=== PATIENT | female | born 1960 | race Caucasian/White ===

== ENCOUNTER → 2018-08-05 10:22 | Outpatient (CLI) | payer OTHER, SELFPAY ==
[2018-08-05 11:23] LABS: BUN Creatinine Ratio 23.3 (6-22); Blood Urea Nitrogen 14 mg/dL (7-17); Calcium 9.5 mg/dL (8.4-10.2); Carbon Dioxide 20 mmol/L (22-32); Chloride 107 mmol/L (98-107); Cholesterol 203 mg/dL (140-199); Estimated Glomerular Filt Rate > 60.0 mL/min (>60); Glucose 115 mg/dL (70-100); HDL Cholesterol 65 mg/dL (40-60); HEMOLYSIS 17 (0-50); LDL Cholesterol Calculated 108 mg/dL (<100); Potassium 4.1 mmol/L (3.4-5.1); Sodium 143 mmol/L (137-145); Triglycerides 149 mg/dL (35-150)
[2018-08-05 11:52] LABS: Thyroid Stimulating Hormone 0.25 uIU/mL (0.47-4.68)
== END ==
PROVIDERS: Visit Provider Internal Medicine
DX: I10 Essential (primary) hypertension (principal); E03.9 Hypothyroidism, unspecified; E78.2 Mixed hyperlipidemia
CPT/HCPCS: 36415; 80048; 80061; 84443

== ENCOUNTER → 2018-11-13 12:16 | Outpatient (CLI) | payer OTHER, SELFPAY ==
--- NOTE | 2018-11-13 | DI.MG.S_ITS ---
BILATERAL DIGITAL SCREENING MAMMOGRAM 3D/2D WITH CAD: 11/13/2018 CLINICAL: Routine screening. Comparison is made to exams dated: 01/24/2013 mammogram, 01/05/2012 mammogram, and 10/12/2010 mammogram - [facility]. The tissue of both breasts is heterogeneously dense. This may lower the sensitivity of mammography. Current study was also evaluated with a Computer Aided Detection (CAD) system. There is an oval equal density asymmetry with a circumscribed margin in the right breast central to the nipple anterior depth. There is an oval equal density focal asymmetry with an obscured and circumscribed margin in the left breast anterior depth superior region seen on the mediolateral oblique view only. No other significant masses or calcifications are seen in either breast. IMPRESSION: INCOMPLETE: NEEDS ADDITIONAL IMAGING EVALUATION The oval equal density asymmetry in the right breast central to the nipple anterior depth is indeterminate. Mediolateral and spot compression views as well as additional views with possible ultrasound are recommended. The oval equal density focal asymmetry in the left breast anterior depth superior region seen on the mediolateral oblique view only is indeterminate. Mediolateral and spot compression views as well as additional views with possible ultrasound are recommended. This exam was interpreted at Station ID: [id number]. NOTE: For mammograms, a report in lay terms will be sent to the patient. Approximately 15% of breast malignancies will not be visualized mammographically. In the management of a palpable breast mass, a negative mammogram must not discourage biopsy of a clinically suspicious lesion. Electronically Signed By: Tacho miller/edward:11/13/2018 15:47:36 letter sent: Additional Imaging Needed ACR BI-RADS Category 0: Incomplete 3340F
== END ==
PROVIDERS: Visit Provider Internal Medicine
DX: Z12.31 Encounter for screening mammogram for malignant neoplasm of breast (principal)
CPT/HCPCS: 77063; 77067

== ENCOUNTER → 2018-12-05 12:04 | Outpatient (CLI) | payer OTHER, SELFPAY ==
--- NOTE | 2018-12-05 | DI.US.S_ITS ---
LIMITED ULTRASOUND OF RIGHT BREAST: 12/05/2018 CLINICAL: Patient returns today to evaluate a density in the right breast. Comparison is made to exams dated: 12/05/2018 mammogram, 11/13/2018 mammogram, 01/24/2013 mammogram, 01/05/2012 mammogram, and 10/12/2010 mammogram - [facility]. Ultrasound of the right breast 7-9 o'clock region was performed. There is 1.4 cm x 0.5 cm x 0.7 cm dilated duct in the right breast at 9 o'clock in the retroareolar region. This dilated duct displays homogeneous internal echoes. Color flow imaging demonstrates that there is no vascularity present. There also is a benign 5 mm round cyst in the right breast at 9 o'clock anterior depth. Color flow imaging demonstrates that there is no vascularity present. IMPRESSION: PROBABLY BENIGN The 1.4 cm x 0.5 cm x 0.7 cm dilated, debris-filled duct in the right breast at 9 o'clock in the retroareolar region likely corresponds to the mammographic finding and is probably benign. A discrete intraductal lesion is not visible. A follow-up ultrasound in 6 months is recommended to assess for resolution or stability. The 5 mm round cyst in the right breast at 9 o'clock anterior depth is consistent with a simple cyst and is benign. Findings and recommendations were conveyed to the patient. This exam was interpreted at Station ID: [id number]. Electronically Signed By: Evelina chapin/:12/05/2018 16:22:18 letter sent: Followup Recommended Ultrasound BI-RADS: 3 Probably benign
--- NOTE | 2018-12-05 | DI.MG.S_ITS ---
BILATERAL DIGITAL DIAGNOSTIC MAMMOGRAM 3D/2D WITH ADDITIONAL VIEWS: 12/05/2018 CLINICAL: Additional evaluation requested from prior study. Comparison is made to exams dated: 11/13/2018 mammogram, 01/24/2013 mammogram, and 01/05/2012 mammogram - [facility]. The tissue of both breasts is heterogeneously dense. This may lower the sensitivity of mammography. There is a 3 mm round mass with a circumscribed margin in the right breast at 8 o'clock in the retroareolar region. With additional views, no persistent abnormality was seen in the left breast as indicated at screening. No other significant masses, calcifications, or other findings are seen in either breast. IMPRESSION: INCOMPLETE: NEEDS ADDITIONAL IMAGING EVALUATION The 3 mm round mass in the right breast is indeterminate. An ultrasound is recommended which was performed following this exam. Left breast diagnostic mammogram is negative. This exam was interpreted at Station ID: [id number]. NOTE: For mammograms, a report in lay terms will be sent to the patient. Approximately 15% of breast malignancies will not be visualized mammographically. In the management of a palpable breast mass, a negative mammogram must not discourage biopsy of a clinically suspicious lesion. Electronically Signed By: Evelina chapin/:12/05/2018 16:16:06 ACR BI-RADS Category 0: Incomplete 3340F
== END ==
PROVIDERS: PCP Internal Medicine; Visit Provider Internal Medicine
DX: R92.8 Other abnormal and inconclusive findings on diagnostic imaging of breast (principal); N63.13 Unspecified lump in the right breast, lower outer quadrant; N60.01 Solitary cyst of right breast
CPT/HCPCS: 76642; 77066; G0279

== ENCOUNTER → 2019-01-07 14:55 | Outpatient (CLI) | payer OTHER, SELFPAY ==
[2019-01-07 18:26] LABS: TSH w/ Reflex to FT4 0.18 uIU/mL (0.47-4.68)
[2019-01-07 19:15] LABS: Free T4, Direct Thyroxine 1.46 ng/dL (0.78-2.19)
== END ==
PROVIDERS: PCP Internal Medicine; Visit Provider Internal Medicine
DX: E03.9 Hypothyroidism, unspecified (principal)
CPT/HCPCS: 36415; 84439; 84443

== ENCOUNTER → 2019-03-12 13:26 | Outpatient (CLI) | payer OTHER, SELFPAY ==
[2019-03-12 16:34] LABS: TSH w/ Reflex to FT4 1.05 uIU/mL (0.47-4.68)
== END ==
PROVIDERS: PCP Internal Medicine; Visit Provider Internal Medicine
DX: E03.9 Hypothyroidism, unspecified (principal)
CPT/HCPCS: 36415; 84443

== ENCOUNTER 2019-04-16 09:45 | Day surgery (SDC) | payer OTHER, SELFPAY ==
--- NOTE | 2019-04-16 | PATH_ITS ---
[facility] Accession Number: [id number] . 01 Material submitted: . PART A: colon - TRANSVERSE COLON POLYP X2 PART B: colon - SIGMOID POLYP . 02 Diagnosis: A. Transverse Colon, Polyps x2, Biopsies: Tubular adenoma. Sessile serrated adenoma. . B. Sigmoid Colon, Polyp, Biopsy: Tubular adenoma. MRV/04/17/2019 . 02 Electronically signed: . Amanda Dumont MD, Pathologist NPI- [id number] . 01 Gross description: . Part A: TRANSVERSE COLON POLYP X2: Received in formalin are 3 fragment(s) of jeronimo, soft tissue measuring 0.1 x 0.1 x 0.1 cm to 0.5 x 0.5 x 0.3 cm which is entirely submitted and submitted entirely in 1 cassette(s) Part B: SIGMOID POLYP: Received in formalin is 1 fragment(s) of jeronimo, soft tissue measuring 0.3 x 0.2 x 0.2 cm which is entirely submitted and submitted entirely in 1 cassette(s) /DMC /DMC . 02 Pathologist provided ICD-10: D12.3, D12.5 . 02 CPT . 197179, 630517 Performed at: 01 [facility] [address], [place], [place] [id number] MD Tacho Bartlett MD Phone: [phone] Performed at: 02 [facility] [address] [place], [place] [id number] MD Amanda Dumont MD Phone: [phone]
--- NOTE | 2019-04-16 07:51 | PM.HP.1 ---
History of Present Illness Date Patient Seen: 04/16/19 Chief complaint: [id number] Narrative: 59-year-old female seen in our office on 02/18/2019 for preop evaluation prior to undergoing colon cancer screening. No prior history of colonoscopy. No active GI symptoms at present Patient History Medical History (Updated 04/16/19 @ 10:18 by Diana Cook RN) Bronchospastic airway disease (Acute) Chronic low back pain (Acute) Current smoker on some days (Acute) Hyperlipidemia (Acute) Hypertension (Acute) Hypothyroidism (Acute) Sciatica (Acute) Social History household members: spouse Meds Home Medications Medication Instructions Recorded Confirmed Type albuterol sulfate 90 mcg INHALATION Q4H PRN 04/16/19 04/16/19 History amlodipine 10 mg PO DAILY 04/16/19 04/16/19 History gabapentin 600 mg PO TID 04/16/19 04/16/19 History hydrocodone-acetaminophen 1 tab PO Q6H PRN 04/16/19 04/16/19 History ibuprofen 800 mg PO Q6H PRN 04/16/19 04/16/19 History ibuprofen-diphenhydramine cit 2 cap PO BEDTIME PRN 04/16/19 04/16/19 History [Advil PM] levothyroxine 125 mcg PO DAILY 04/16/19 04/16/19 History medroxyprogesterone 04/16/19 History medroxyprogesterone 2.5 mg PO DAILY 04/16/19 04/16/19 History metoprolol tartrate 50 mg PO BID 04/16/19 04/16/19 History triamterene-hydrochlorothiazid 1 cap PO DAILY 04/16/19 04/16/19 History [Dyazide] Allergies Allergy/AdvReac Type Severity Reaction Status Date / Time egg [EGG] Allergy Mild GAS/STOMACH Verified 04/16/19 10:06 ACHE Sulfa (Sulfonamide Allergy Mild ITCHING, Verified 04/16/19 10:06 Antibiotics) HIVES [SULFA (SULFONAMIDE ANTIBIOTICS)] Exam Narrative Exam Narrative: General: Patient is overweight, not in apparent distress Cardiovascular: Regular rate and rhythm, no murmurs, rubs, or gallops; no evidence of edema; no palpable abdominal aortic aneurysm Gastrointestinal: Normoactive bowel sounds, soft, nontender, nondistended, no rebound tenderness, no hepatosplenomegaly, no evidence of hernia Assessment & Plan Assessment & Plan narrative: 59-year-old female here for colon cancer screening. No alarm symptoms at present Regarding the procedure(s), the risks and potential complications, benefits, and alternatives (including not doing the procedure) were discussed with the patient. The risks include but are not limited to bleeding, splenic injury, infection, perforation which may require surgical intervention, missed lesions, and adverse reactions to sedative medicines. After a question and answer period, the patient agreed to proceed with the procedure(s) and gives informed consent.
[2019-04-16] MEDS: SODIUM CHLORIDE 0.9% 1,000 ML 70 ML IV (10:10)
[2019-04-16 10:13] VITALS: BP 154/79; PULSE 83; RESP 15; TEMP 36.4; O2SAT 96; BMI 24.0
[2019-04-16] MEDS: fentaNYL 250 MCG/5 ML INJ IV (11:25)
[2019-04-16] MEDS: MIDAZOLAM 5 MG/5 ML VIAL IV (11:25)
--- NOTE | 2019-04-16 11:37 | P.OP.ENDO_ITS ---
Operative Date/Time/Diagnoses Date of procedure: 04/16/19 Procedure Notes Procedure in detail: Surgeon: Damian Sanchez MD Procedure: Colonoscopy with polypectomy Preoperative diagnosis: Colon cancer screening Postoperative diagnosis: Colon polyps x3 status post polypectomy; hypertrophied anal papillae Medications: Conscious sedation using 8 mg IV of Midazolam and 150 mcg IV of Fentanyl Preanesthesia Assessment An H and P was performed/updated and the Px?s ASA class is 2. The procedure was discussed in detail with the patient. The potential risks and complications including infection, bleeding, missed lesions, perforation, need for surgery in case of perforation, prolonged hospital stay, and were explained. A brief question and answer period was allotted and once all questions were answered, informed consent was obtained. The patient was brought back to the procedure room and placed on standard monitoring. The patient?s vital signs were monitored continuously throughout the entire procedure. Prior to starting, a timeout was performed to confirm the patient?s identity, allergies, medications, and procedure. Procedure in detail The patient was placed in left lateral decubitus position and once adequate sedation was obtained a FLORECITA was performed. The digital rectal examination did not reveal any palpable lesions. The tip of the colonoscope was placed in the anal canal and advanced without difficulty all the way to the cecum which was identified by the appendiceal orifice and the ileocecal valve. Careful examination of all millard of the colon was performed with irrigation of any residual stool. In the transverse colon, there was note of a 3 mm sessile polyp which was removed by means of cold Jumbo forceps. Resection and retrieval was complete with minimal bleeding In the transverse colon, there was note of a 6 mm sessile polyp which was re moved by means of cold snare. Resection retrieval was complete with minimal bleeding. In the sigmoid colon, there was note of a 2 3 mm sessile polyp which was removed by means of a cold Jumbo forceps. Resection and retrieval was complete with minimal bleeding. Retroflexion was performed in the rectum which revealed hypertrophied anal papillae. The patient tolerated the procedure well and will be brought back to the recovery area to be discharged once criteria are met. The prep was judged to be good and adequate to identify polyps less than 5 mm. The withdrawal time was 9 minutes. The total physician intraservice time was 18 minutes. Complications There were no complications and estimated blood loss was minimal. Recommendations: Resume previous diet Continue outPx medications Follow up pathology results Repeat colonoscopy in 3 or 5 years depending on pathology results An emergency contact number was given to the patient for any complications related to the procedure
[2019-04-16 11:40] VITALS: BP 129/74; PULSE 83; RESP 13; TEMP 36.8; O2SAT 97
[2019-04-16 11:45] VITALS: BP 141/81; PULSE 83; RESP 12; O2SAT 98
[2019-04-16 11:50] VITALS: BP 146/81; PULSE 78; RESP 12; O2SAT 97
[2019-04-16 11:58] VITALS: BP 144/81; PULSE 77; RESP 16; TEMP 36.4; O2SAT 99
[2019-04-16 12:06] VITALS: BP 125/77; PULSE 80; RESP 16; TEMP 36.6; O2SAT 97
== END 2019-04-16 12:21 | disposition home or self-care (01) ==
LOC: ENDO 09:46
PROVIDERS: PCP Internal Medicine; Visit Provider Internal Medicine Gastroenterology
PROC: 0DJD8ZZ Inspection of Lower Intestinal Tract, Via Natural or Artificial Opening Endoscopic (ICD-10-PCS; CPT 45378; principal; 2019-04-16 11:00)
DX: Z12.11 Encounter for screening for malignant neoplasm of colon (principal); D12.3 Benign neoplasm of transverse colon; D12.5 Benign neoplasm of sigmoid colon; K62.89 Other specified diseases of anus and rectum; E78.5 Hyperlipidemia, unspecified; I10 Essential (primary) hypertension; E03.9 Hypothyroidism, unspecified; F17.200 Nicotine dependence, unspecified, uncomplicated
CPT/HCPCS: 45385; 45380; J2250; J3010

== ENCOUNTER → 2019-10-16 14:45 | Outpatient (ROUT) | payer OTHER, SELFPAY ==
[2019-10-16 15:12] LABS: Aspartate Aminotransferase 23 IU/L (14-36); BUN Creatinine Ratio 18.3 (6-22); Blood Urea Nitrogen 11 mg/dL (7-17); Calcium 9.8 mg/dL (8.4-10.2); Carbon Dioxide 26 mmol/L (22-32); Chloride 103 mmol/L (98-107); Cholesterol 197 mg/dL (140-199); Estimated Glomerular Filt Rate > 60.0 mL/min (>60); Glucose 114 mg/dL (80-110); HDL Cholesterol 68 mg/dL (40-60); HEMOLYSIS < 15 (0-50); LDL Cholesterol Calculated 94 mg/dL (<100); Potassium 3.7 mmol/L (3.4-5.1); Sodium 139 mmol/L (137-145); Triglycerides 176 mg/dL (35-150)
[2019-10-16 15:41] LABS: TSH w/ Reflex to FT4 3.87 uIU/mL (0.47-4.68)
== END ==
PROVIDERS: PCP Internal Medicine; Visit Provider Internal Medicine
DX: I10 Essential (primary) hypertension (principal); E78.2 Mixed hyperlipidemia; E03.9 Hypothyroidism, unspecified
CPT/HCPCS: 80048; 80061; 84443; 84450

== ENCOUNTER → 2020-10-27 14:35 | Outpatient (ROUT) | payer OTHER, SELFPAY ==
[2020-10-27 14:54] LABS: Add Manual Diff / Slide Review NO; Basophils Absolute Auto 100 /uL (0-100); Basophils Percent Auto 1.4 % (0-2); Eosinophils Absolute Auto 100 /uL (0-450); Eosinophils Percent Auto 1.4 % (2-4); Hematocrit 42.8 % (36-46); Hemoglobin 14.5 g/dL (12.0-16.0); Lymphocytes Absolute Auto 3000 /uL (1100-4500); Lymphocytes Percent Auto 33.9 % (25-40); Mean Corpuscular HGB Conc 33.9 % (30-36); Mean Corpuscular Hemoglobin 35.1 PG (26-34); Mean Corpuscular Volume 103.4 fL (80-100); Monocytes Absolute Auto 1100 /uL (0-900); Monocytes Percent Auto 12.2 % (3-14); Neutrophils Absolute Auto 4400 /uL (1500-7000); Neutrophils Percent Auto 51.1 % (50-75); Platelet Count 279 X10^3/uL (150-400); Red Blood Cell Count 4.14 X10^6/uL (4.0-5.2); Red Cell Distribution Width 13.7 % (11.6-14.8); White Blood Cell Count 8.7 X10^3/uL (4.5-11.0)
[2020-10-27 14:59] LABS: Aspartate Aminotransferase 31 IU/L (14-36); BUN Creatinine Ratio 20.3 (6-22); Blood Urea Nitrogen 14 mg/dL (7-17); Carbon Dioxide 29 mmol/L (22-32); Chloride 101 mmol/L (98-107); Cholesterol 237 mg/dL (140-199); Estimated Glomerular Filt Rate > 60.0 mL/min (>60); Glucose 115 mg/dL (80-110); HDL Cholesterol 98 mg/dL (40-60); HEMOLYSIS < 15 (0-50); LDL Cholesterol Calculated 92 mg/dL (<100); Potassium 4.2 mmol/L (3.4-5.1); Sodium 137 mmol/L (137-145); Triglycerides 237 mg/dL (35-150)
[2020-10-27 15:26] LABS: TSH w/ Reflex to FT4 0.65 uIU/mL (0.47-4.68)
== END ==
PROVIDERS: PCP Internal Medicine; Visit Provider Internal Medicine
DX: I10 Essential (primary) hypertension (principal)
CPT/HCPCS: 80048; 80061; 84443; 84450; 85025

== ENCOUNTER → 2020-11-02 12:38 | Outpatient (CLI) | payer OTHER, SELFPAY ==
--- NOTE | 2020-11-02 | DI.US.S_ITS ---
PROCEDURE: US PELVIC COMPLETE INDICATIONS: Postmenopausal bleeding TECHNIQUE: Real-time scanning was performed of the pelvic organs, with image documentation. Additional endovaginal scanning was necessary due to incomplete visualization of the adnexal and endometrial structures by transabdominal scanning. COMPARISON: None. FINDINGS: Uterus: Uterus is enlarged in size at 10.0 x 6.4 x 9.0 cm. Heterogeneous uterine echotexture with too numerous to count multiple intrauterine fibroids. The largest is seen in the midline, posterior fundus, subserosal in location and measuring 5.6 x 5.5 x 5.6 cm. The endometrium measures 11 mm in combined thickness. Ovaries: The ovaries are not visualized on this examination. Other: No pathologic free abdominal or pelvic fluid. IMPRESSION: 1. Thickened endometrial stripe of 11 mm is abnormal for this postmenopausal patient with history of postmenopausal uterine bleeding. Consider further evaluation with endometrial biopsy/sampling. 2. Multi-fibroid uterus. 3. Nonvisualization of the bilateral ovaries on today's examination. Dictated by: Aleksander Ulrich M.D. on 11/02/2020 at 22:00 Approved by: Aleksander Ulrich M.D. on 11/02/2020 at 22:06
== END ==
PROVIDERS: PCP Internal Medicine; Referring Provider Internal Medicine; Visit Provider Internal Medicine
DX: N95.0 Postmenopausal bleeding (principal); R93.89 Abnormal findings on diagnostic imaging of other specified body structures; D25.2 Subserosal leiomyoma of uterus; D25.9 Leiomyoma of uterus, unspecified
CPT/HCPCS: 76830; 76856

== ENCOUNTER → 2022-03-22 07:36 | Outpatient (CLI) | payer OTHER, SELFPAY ==
[2022-03-22 08:06] LABS: Hematocrit 40.8 % (36-46); Hemoglobin 13.9 g/dL (12.0-16.0); Mean Corpuscular HGB Conc 34.1 % (30-36); Mean Corpuscular Hemoglobin 34.6 PG (26-34); Mean Corpuscular Volume 101.4 fL (80-100); Platelet Count 280 X10^3/uL (150-400); Red Blood Cell Count 4.02 X10^6/uL (4.0-5.2); Red Cell Distribution Width 13.5 % (11.6-14.8); White Blood Cell Count 7.2 X10^3/uL (4.5-11.0)
[2022-03-22 08:13] LABS: Alanine Aminotransferase 16 IU/L (<35); Albumin 4.7 g/dL (3.5-5.0); Albumin Globulin Ratio 1.5 (1.0-2.8); Alkaline Phosphatase 52 U/L (38-126); Aspartate Aminotransferase 26 IU/L (14-36); BUN Creatinine Ratio 15.3 (6-22); Bilirubin Total 0.4 mg/dL (0.2-1.3); Blood Urea Nitrogen 11 mg/dL (7-17); Calcium 9.7 mg/dL (8.4-10.2); Carbon Dioxide 29 mmol/L (22-32); Chloride 101 mmol/L (98-107); Cholesterol 231 mg/dL (140-199); Estimated Glomerular Filt Rate > 60 mL/min (>60); Globulin 3.1 g/dL (1.7-4.1); Glucose 111 mg/dL (80-110); HDL Cholesterol 81 mg/dL (40-60); HEMOLYSIS < 15 (0-50); LDL Cholesterol Calculated 122 mg/dL (<100); Potassium 3.4 mmol/L (3.4-5.1); Sodium 139 mmol/L (137-145); Total Protein 7.8 g/dL (6.3-8.2); Triglycerides 139 mg/dL (35-150)
[2022-03-22 08:54] LABS: TSH w/ Reflex to FT4 5.35 uIU/mL (0.47-4.68)
[2022-03-23 03:43] LABS: Free T4, Direct Thyroxine 1.32 ng/dL (0.78-2.19)
== END ==
PROVIDERS: PCP Internal Medicine; Referring Provider Internal Medicine; Visit Provider Internal Medicine
DX: E03.9 Hypothyroidism, unspecified (principal); G89.29 Other chronic pain; I10 Essential (primary) hypertension; M54.42 Lumbago with sciatica, left side
CPT/HCPCS: 36415; 80053; 80061; 84439; 84443; 85027

== ENCOUNTER → 2022-07-17 10:19 | Outpatient (CLI) | payer OTHER, SELFPAY ==
[2022-07-17 12:07] LABS: TSH w/ Reflex to FT4 2.94 uIU/mL (0.47-4.68)
== END ==
PROVIDERS: PCP Internal Medicine; Referring Provider Internal Medicine; Visit Provider Internal Medicine
DX: M85.852 Other specified disorders of bone density and structure, left thigh (principal); E03.9 Hypothyroidism, unspecified; Z13.820 Encounter for screening for osteoporosis; Z78.0 Asymptomatic menopausal state; Z92.23 Personal history of estrogen therapy
CPT/HCPCS: 36415; 77080; 84443

== ENCOUNTER 2022-12-19 08:39 | Day surgery (SDC) | payer OTHER, SELFPAY ==
--- NOTE | 2022-12-19 | PATH_ITS ---
[facility] Accession Number: [id number] No. of containers..01 Tissue . 01 Material submitted: . colon - DESCENDING COLON POLYP . 01 Diagnosis: Descending Colon, Polyp, Biopsy: Hyperplastic polyp. MRV 12/21/2022 1457 Local . 01 Electronically signed: . Amanda Dumont MD, Pathologist NPI- [id number] . 01 Gross description: . DESCENDING COLON POLYP: Received in formalin is 1 fragment(s) of jeronimo, soft tissue measuring 0.2 x 0.2 x 0.1 cm submitted entirely in 1 cassette(s) /CPE 12/20/2022 0654 Local . 01 Pathologist provided ICD-10: K63.5 . 01 CPT . 653062 Specimen Comment: A courtesy copy of this report has been sent to [phone] Performed at: 01 [facility] [address] [place] [address], [place], [place] [id number] MD Tacho Bartlett MD Phone: [phone]
[2022-12-19 09:04] VITALS: BMI 24.1
[2022-12-19 09:16] VITALS: BP 151/83; PULSE 96; RESP 18; TEMP 36.2; O2SAT 98
[2022-12-19] MEDS: LACTATED RINGERS 1,000 ML 200 ML IV (09:44)
--- NOTE | 2022-12-19 10:55 | P.HP_ITS ---
History of Present Illness History of Present Illness Date Patient Seen: 12/19/22 Time Patient Seen: 10:55 Chief complaint: Colonoscopy Narrative: 62-year-old woman with a personal history of colonic polyps who is here for a screening colonoscopy. Last colonoscopy 3 years ago demonstrated a sessile serrated adenoma. No personal or family history of intestinal malignancy. No abdominal symptoms including nausea vomiting unintentional weight loss blood per rectum. [facility] Medical History (Updated 09/27/22 @ 08:45 by Daniel Savage MD) Acquired hypothyroidism Bronchospastic airway disease Chronic back pain Chronic low back pain Chronic, continuous use of opioids Current smoker on some days Essential hypertension History of colonic polyps Hyperlipidemia Mild intermittent asthma Osteopenia Sciatica Family History Father Hypertension Mother Hypertension Sister Hypertension Social History household members: spouse Smoking Status: Current some day smoker alcohol intake: current Meds Home Medications and Allergies Home Medications Medication Instructions Recorded Confirmed Type albuterol sulfate 90 mcg/actuation 90 mcg inhalation Q4H PRN Wheezing 04/16/19 12/19/22 History breath activated powder inhaler estradiol 1 mg tablet See Rx Instructions .Route 06/12/22 12/19/22 Rx .COMPLEX #45 tabs gabapentin 600 mg tablet See Rx Instructions .Route 06/12/22 12/19/22 Rx .COMPLEX #270 tabs medroxyprogesterone 2.5 mg tablet See Rx Instructions .Route 06/12/22 12/19/22 Rx .COMPLEX #90 tabs levothyroxine 125 mcg tablet 125 mcg PO DAILY #90 tabs 06/15/22 09/27/22 Rx triamterene 37.5 1 tab PO DAILY 06/30/22 12/19/22 History mg-hydrochlorothiazide 25 mg tablet hydrocodone 5 mg-acetaminophen 325 1 tab PO Q6H PRN pain #120 tabs 09/27/22 09/27/22 Rx mg tablet hydrocodone 5 mg-acetaminophen 325 1 tab PO Q6H PRN pain #120 tabs 09/27/22 12/19/22 Rx mg tablet hydrocodone 5 mg-acetaminophen 325 1 tab PO Q6H PRN sciatica #120 tabs 09/27/22 12/19/22 Rx mg tablet metoprolol tartrate 50 mg tablet 50 mg PO BID 09/27/22 12/19/22 History amlodipine 10 mg tablet PO DAILY 12/19/22 History fluticasone propionate 50 1 spray intranasal DAILY 12/19/22 12/19/22 History mcg/actuation nasal spray,suspension (Flonase Allergy Relief) Allergies Allergy/AdvReac Type Severity Reaction Status Date / Time egg [EGG] Allergy Mild GAS/STOMACH Verified 12/19/22 09:03 ACHE Sulfa (Sulfonamide Allergy Mild ITCHING, Verified 12/19/22 09:03 Antibiotics) HIVES [SULFA (SULFONAMIDE ANTIBIOTICS)] Exam Vital Signs (past 8 hours): - 12/19/22 09:16 Temperature 97.2 F L Pulse Rate 96 H Respiratory Rate 18 Blood Pressure 151/83 H Pulse Oximetry 98 Oxygen Delivery Method Room Air Oxygen Delivery Method Room Air Narrative Exam Narrative: General adult woman alert oriented no acute distress Abdomen soft nontender nondistended Assessment & Plan Assessment & Plan narrative: The patient requires colorectal screening and colonoscopy is recommended. Technical details were discussed. Risks, benefits, alternatives explained. Risks including but not limited to myocardial infarction, aspiration, bleeding, pain, missed lesion, incomplete examination, need for further radiographic studies, colonic perforation, and need for major abdominal surgery were discussed. All questions were answered to their satisfaction, and they are in agreement with this plan.
--- NOTE | 2022-12-19 10:57 | PM.OP.COLON ---
Operative Date/Time/Diagnoses Date of procedure: 12/19/22 Time of procedure: 10:57 Pre-op diagnosis: Personal history of colonic polyps Post-op diagnosis: other (Colonic polyp x1) Procedure & Clinicians Study performed: Colonoscopy Same procedure as scheduled: Yes Indications: Personal history of colonic polyps Surgeon: Damien Hightower Procedure Notes Procedure in detail: The history and physical was performed/updated and the patient is ASA class is 2. The procedure was discussed in detail with the patient. Potential risks complications including infection, bleeding, missed diagnosis, perforation, need for surgery, and were explained. Their questions were answered and informed consent was obtained. Patient was brought to the procedure room and placed standard monitoring equipment. The patient's vital signs were monitored continuously throughout the entire procedure. Prior to starting time-out was performed. The patient was placed in the left lateral recumbent position. Procedural sedation was administered by anesthesia. Examination began with a thorough inspection of the perianal area there was no evidence of fissures, fistulae, external hemorrhoids or cutaneous malignancy. The colonoscopy scope was then placed into the anal canal and was advanced to the cecum, which was identified by the ileocecal valve, the appendiceal orifice and the confluence of the taenia. The scope was then slowly withdrawn examining colon thoroughly in all directions, irrigating it of any residual stool. Within the descending colon there was a 3 mm polyp within a mucosal fold which was removed with biopsy forceps. The remainder of the colon was unremarkable. The patient tolerated the procedure well. They will be discharged once criteria are met. The prep was of good/excellent quality. The withdrawl time was 7 minutes. Specimen(s): other (Descending colonic polyp) Impression: Colonic polyp x1 Post-procedure Recommendations: High fiber diet Plan for aftercare: Follow-up is dependent on pathology findings Disposition: same day surgery
[2022-12-19 11:20] VITALS: BP 142/64; PULSE 93; RESP 17; TEMP 36.2; O2SAT 98
[2022-12-19 11:31] VITALS: BP 144/74; PULSE 86; RESP 13; O2SAT 100
[2022-12-19 11:36] VITALS: BP 151/70; PULSE 91; RESP 15; O2SAT 99
== END 2022-12-19 11:45 | disposition home or self-care (01) ==
PROVIDERS: PCP Internal Medicine; Referring Provider Surgery; Visit Provider Surgery
PROC: 0DJD8ZZ Inspection of Lower Intestinal Tract, Via Natural or Artificial Opening Endoscopic (ICD-10-PCS; CPT 45378; principal; 2022-12-19 09:45)
DX: Z12.11 Encounter for screening for malignant neoplasm of colon (principal); Z86.010 Personal history of colon polyps; K63.5 Polyp of colon
CPT/HCPCS: 45380; J2704; J3010

== ENCOUNTER → 2023-09-20 09:47 | Outpatient (CLI) | payer OTHER, SELFPAY ==
[2023-09-20 10:55] LABS: Aspartate Aminotransferase 30 IU/L (14-36); BUN Creatinine Ratio 14.9 (6-22); Blood Urea Nitrogen 13 mg/dL (7-17); Calcium 9.7 mg/dL (8.4-10.2); Carbon Dioxide 26 mmol/L (22-32); Chloride 102 mmol/L (98-107); Cholesterol 253 mg/dL (140-199); Estimated Glomerular Filt Rate > 60 mL/min (>60); Glucose 100 mg/dL (80-110); HDL Cholesterol 85 mg/dL (40-60); HEMOLYSIS < 15 (0-50); LDL Cholesterol Calculated 134 mg/dL (<100); Potassium 3.2 mmol/L (3.4-5.1); Sodium 137 mmol/L (137-145); Triglycerides 172 mg/dL (35-150)
[2023-09-20 12:02] LABS: Free T4, Direct Thyroxine 0.79 ng/dL (0.78-2.19)
== END ==
LOC: LAB 09:47
PROVIDERS: PCP Internal Medicine; Referring Provider Internal Medicine; Visit Provider Internal Medicine
DX: E03.9 Hypothyroidism, unspecified (principal); I10 Essential (primary) hypertension
CPT/HCPCS: 36415; 80048; 80061; 84439; 84443; 84450

== ENCOUNTER → 2023-10-10 14:17 | Outpatient (CLI) | payer OTHER, SELFPAY ==
--- NOTE | 2023-10-10 14:18 | DI.MG.S_ITS ---
BILATERAL DIGITAL SCREENING MAMMOGRAM 3D/2D WITH CAD: 10/10/2023 CLINICAL: Routine screening. Comparison is made to exams dated: 11/13/2018 mammogram, 01/24/2013 mammogram, 01/05/2012 mammogram, and 12/05/2018 mammogram - [facility]. Both breasts are heterogeneously dense, which may obscure small masses (category c / 51-75% glandular tissue). Current study was also evaluated with a Computer Aided Detection (CAD) system. There is a new 1.1 cm irregular focal asymmetry in the right breast at 11 o'clock middle depth. There is architectural distortion associated with the focal asymmetry. No other significant masses, calcifications, or other findings are seen in either breast. IMPRESSION: INCOMPLETE: NEEDS ADDITIONAL IMAGING EVALUATION The new 1.1 cm irregular focal asymmetry in the right breast is indeterminate. Additional views with possible ultrasound are recommended. Based on the Tyrer Cuzick model (a risk assessment model) the patient's lifetime risk is 6.9% and her 10 year risk is 3.2%. According to the ACR, ACS, and NCCN guidelines, an annual breast MRI exam along with mammogram is recommended if the patient's lifetime risk is 20% or greater. This exam was interpreted at Station ID: [id number]. NOTE: For mammograms, a report in lay terms will be sent to the patient. Approximately 15% of breast malignancies will not be visualized mammographically. In the management of a palpable breast mass, a negative mammogram must not discourage biopsy of a clinically suspicious lesion. Electronically Signed By: Aleksander montana/edward:10/10/2023 18:55:07 letter sent: Additional Imaging Needed ACR BI-RADS Category 0: Incomplete 3340F
== END ==
PROVIDERS: PCP Internal Medicine; Referring Provider Internal Medicine; Visit Provider Internal Medicine
DX: Z12.31 Encounter for screening mammogram for malignant neoplasm of breast (principal); R92.333 Mammographic heterogeneous density, bilateral breasts
CPT/HCPCS: 77063; 77067

== ENCOUNTER → 2023-10-30 10:03 | Outpatient (CLI) | payer OTHER, SELFPAY ==
--- NOTE | 2023-10-30 10:05 | DI.MG.S_ITS ---
UNILATERAL RIGHT DIGITAL DIAGNOSTIC MAMMOGRAM 3D/2D WITH ADDITIONAL VIEWS: 10/30/2023 CLINICAL: Additional evaluation requested from prior study. Comparison is made to exams dated: 10/10/2023 mammogram, 12/05/2018 mammogram, and 11/13/2018 mammogram - [facility]. The right breast is heterogeneously dense, which may obscure small masses (category c / 51-75% glandular tissue). There is a cluster of focal asymmetries in the right breast at 11 o'clock middle depth. These are seen in additional views. There is architectural distortion associated with the focal asymmetries. No other significant masses or calcifications are seen in the breast. IMPRESSION: INCOMPLETE: NEEDS ADDITIONAL IMAGING EVALUATION The focal asymmetries in the right breast are indeterminate. A targeted ultrasound of the right breast is recommended and will be performed immediately following this exam. Based on the Tyrer Cuzick model (a risk assessment model) the patient's lifetime risk is 6.9% and her 10 year risk is 3.2%. According to the ACR, ACS, and NCCN guidelines, an annual breast MRI exam along with mammogram is recommended if the patient's lifetime risk is 20% or greater. This exam was interpreted at Station ID: [id number]. NOTE: For mammograms, a report in lay terms will be sent to the patient. Approximately 15% of breast malignancies will not be visualized mammographically. In the management of a palpable breast mass, a negative mammogram must not discourage biopsy of a clinically suspicious lesion. Electronically Signed By: Yani Lopez M.D. lk/:10/30/2023 10:41:05 ACR BI-RADS Category 0: Incomplete 3340F
--- NOTE | 2023-10-30 10:05 | DI.US.S_ITS ---
ULTRASOUND OF RIGHT BREAST: 10/30/2023 CLINICAL: Patient returns today to evaluate a focal asymmetry in the right breast. Comparison is made to exams dated: 10/30/2023 mammogram, 10/10/2023 mammogram, 12/05/2018 ultrasound, 12/05/2018 mammogram, 11/13/2018 mammogram, and 01/24/2013 mammogram - [facility]. Color flow and real-time ultrasound of the right breast were performed on the areas of interest. Alvarez scale images of the real-time examination were reviewed. There is an 1.6 cm x 1.0 cm x 1.0 cm irregular mass in the right breast at 9 o'clock middle depth. This irregular mass is hypoechoic. This correlates with mammography findings. There also is a 1 cm x 1.2 cm x 0.7 cm irregular mass in the right breast at 11 o'clock middle depth. This irregular mass is hypoechoic with posterior acoustic shadowing. This correlates with mammography findings. Additionally, there is a 1.4 cm x 1 cm x 0.9 cm irregular mass in the right breast at 1 o'clock middle depth. This irregular mass is hypoechoic with posterior acoustic shadowing. This correlates with mammography findings. No right axillary adenopathy. IMPRESSION: HIGHLY SUGGESTIVE OF MALIGNANCY The 1.6 cm x 10 cm x 10 cm irregular mass in the right breast at 9 o'clock middle depth is highly suggestive of malignancy. An ultrasound guided biopsy is recommended. The 1 cm x 1.2 cm x 0.7 cm irregular mass in the right breast at 11 o'clock middle depth is at a high suspicion for malignancy. The 1.4 cm x 1 cm x 0.9 cm irregular mass in the right breast at 1 o'clock middle depth is at a high suspicion for malignancy. An ultrasound guided biopsy is recommended. Although 3 discrete reegions are described by ultrasound, this may be a larger, contiguos mass. for this reason, ultrasound guided biopsy is recommended of the 2 flanking mass lesion within the upper quadrants. No axillary adenopathy. This exam was interpreted at Station ID: [id number]. SUMMARY: This was discussed with the patient by the radiologist at the time of the exam. Electronically Signed By: Yani jordan/:10/30/2023 11:33:31 letter sent: Biopsy Required Ultrasound BI-RADS: 5 Highly suggestive of malignancy
== END ==
LOC: MAMMO 10:03
PROVIDERS: PCP Internal Medicine; Referring Provider Internal Medicine; Visit Provider Internal Medicine
DX: R92.8 Other abnormal and inconclusive findings on diagnostic imaging of breast (principal); N63.15 Unspecified lump in the right breast, overlapping quadrants; N63.11 Unspecified lump in the right breast, upper outer quadrant; N63.12 Unspecified lump in the right breast, upper inner quadrant; R92.331 Mammographic heterogeneous density, right breast
CPT/HCPCS: 76642; 77065; G0279

== ENCOUNTER → 2023-11-19 12:32 | Outpatient (CLI) | payer OTHER, SELFPAY ==
--- NOTE | 2023-11-19 | PATH_ITS ---
[facility] Accession Number: [id number] No. of containers..01 Tissue . 01 Material submitted: . breast - RIGHT BREAST 1:00 3 CMFN MASS . 01 Diagnosis: A. RIGHT BREAST, 1 O'CLOCK, 3 CM FROM THE NIPPLE, MASS, BIOPSY: Invasive (lobular) carcinoma, Grade 2 of 3 (David combined histologic grade, total score 6/9) with the following features: 1. Nuclear pleomorphism: Intermediate. (2/3) 2. Mitotic rate: Low. (1/3) 3. Tubular differentiation: None. (3/3) 4. Size of invasive carcinoma: Present on multiple cores, single largest dimension of 4 mm in the sample. 5. Ductal carcinoma in situ: Absent. 6. Calcifications: Present with benign ducts. 7. Lymphatic invasion: Absent. 8. Prognostic markers: - Estrogen receptor status: Positive (more than 99% tumor cells staining, staining intensity strong). - Progesterone receptor status: Positive (more than 99% tumor cells staining, staining intensity strong). - HER2 status: Negative for protein overexpression by immunohistochemistry (0). . COMMENT: The morphology of the carcinoma seen in this biopsy is similar to that seen in case #[id number]. [facility] 11/21/2023 [facility] Local . 01 Electronically signed: Alvaro Roberto MD, Pathologist NPI- [id number] . 01 Gross description: . Received is a formalin-filled container labeled with the patient's name and labeled right breast 1 o'clock 3 cm FN. The sample is received with plastic filter in container and sample loose in container, and consists of multiple yellow-nelson to nelson-jeronimo portions of tissue which range in size from less than 0.1 cm to 0.7 x 0.4 x 0.3 cm. All fragments are totally submitted in cassette A1. . Possible collection date and time per requisition 11/19/2023 at 1426 hours. Total fixation time approximately 13 hours. (DC:[id number]) /[facility] 11/20/2023 0629 Local . 01 Microscopic: . A panel of immunostains and prognostic markers is performed on block A1 in order to evaluate the invasive carcinoma for lobular phenotype, with appropriately staining external controls. The findings are as follows: . E-cadherin: Lost, in support of lobular phenotype. Beta-catenin: Lost, in support of lobular phenotype. . Predictive marker immunohistochemical studies are performed on block A1 with the invasive carcinoma showing the following results: . Estrogen receptor (SP1): Positive (more than 99% tumor cells staining, staining intensity strong). Progesterone receptor (1E2): Positive (more than 99% tumor cells staining, staining intensity strong). Her2 (4B5): Negative for protein overexpression by immunohistochemistry (0). . Cold ischemic time is <5 minutes. The scoring criteria for breast biomarkers by immunohistochemistry is based on the ASCO/CAP guidelines (Gwendolyn AC et al, J Clin Oncol: 2017Mar 19;36(20):3280-4408 and Sinclair ME et al, Arch Pathol Lab Med: 2009;134(6):907-22). Deparaffinized sections of formalin fixed tissue (along with appropriate positive controls) are incubated with the above antibody(s). Using the automated [place] stainer, tissue is incubated with the designated antibody which is then localized by a non-biotin, dual polymer detection system. The external controls are reviewed for appropriate reactivity and found to be adequate. Results on the target cell population are indicated above. These tests have not been validated on decalcified tissue. This test was developed and its performance characteristics determined by [facility]. It has not been cleared or approved by the U.S. Food and Drug Administration. The FDA has determined that such clearance or approval is not necessary. This test is used for clinical purposes. It should not be regarded as investigational or for research. . 01 Pathologist provided ICD-10: C50.911 . 01 CPT . 019202, Q05350, H89926, 451436, 344363, 737331 Specimen Comment: A courtesy copy of this report has been sent to [phone] Performed at: 01 [facility] [address] [facility], [place], [place] [id number] MD Tacho Bartlett MD Phone: [phone]
--- NOTE | 2023-11-19 | PATH_ITS ---
[facility] Accession Number: [id number] No. of containers..01 Tissue . 01 Material submitted: . breast - RIGHT BREAST 9:00 3 CMFN MASS . 01 Diagnosis: A. RIGHT BREAST, 9 O'CLOCK, 3 CM FROM THE NIPPLE, MASS, BIOPSY: Invasive (lobular) carcinoma, Grade 2 of 3 (David combined histologic grade, total score 6/9) with the following features: 1. Nuclear pleomorphism: Intermediate. (2/3) 2. Mitotic rate: Low. (1/3) 3. Tubular differentiation: None. (3/3) 4. Size of invasive carcinoma: Present on multiple cores, single largest dimension of 7 mm in the sample. 5. Ductal carcinoma in situ: Absent. - Lobular carcinoma in situ (LCIS) is present. 6. Calcifications: present in association with LCIS. 7. Lymphatic invasion: Absent. 8. Prognostic markers: - Estrogen receptor status: Positive (more than 99% tumor cells staining, staining intensity strong). - Progesterone receptor status: Positive (more than 99% tumor cells staining, staining intensity strong). - HER2 status: Negative for protein overexpression by immunohistochemistry (0). . COMMENT: The morphology of the carcinoma seen in this biopsy is similar to that seen in case #[id number]. [facility] 11/21/2023 [facility] Local . 01 Electronically signed: . Nakita Roberto MD, Pathologist NPI- [id number] . 01 Gross description: . Received is one formalin-filled container labeled with the patient's name labeled right breast 9 o'clock 3 cm FN. The specimen is received with a plastic filter in the container, and sample loose in container, and consists of multiple fragments of yellow-jeronimo soft tissue and blood which range in size from less than 0.1 cm to 1.2 x 0.4 x 0.3 cm. All fragments are totally submitted in cassette A1. . Possible collection date and time per requisition 11/19/2023 at 1428 hours. Total fixation time approximately 13 hours. (DC:[id number]) /[facility] 11/20/2023 0632 Local . 01 Microscopic: . A panel of immunostains and prognostic markers is performed on block A1 in order to evaluate the invasive carcinoma for lobular phenotype, with appropriately staining external controls. The findings are as follows: . E-cadherin: Lost, in support of lower phenotype. Beta-catenin: Lost, in support of lobular phenotype. . Predictive marker immunohistochemical studies are performed on block A1 with the invasive carcinoma showing the following results: . Estrogen receptor (SP1): Positive (more than 99% tumor cells staiing, staining intensity strong). Progesterone receptor (1E2): Positive (more than 99% tumor cells staining, staining intensity strong). Her2 (4B5): Negative for protein overexpression by immunohistochemistry (0). . Cold ischemic time is <5 minutes. The scoring criteria for breast biomarkers by immunohistochemistry is based on the ASCO/CAP guidelines (Gwendolyn AC et al, J Clin Oncol: 2018 Mar 19;36(20):7572-1944 and Yahir ME et al, Arch Pathol Lab Med: 2009;134(6):907-22). Deparaffinized sections of formalin fixed tissue (along with appropriate positive controls) are incubated with the above antibody(s). Using the automated [place] stainer, tissue is incubated with the designated antibody which is then localized by a non-biotin, dual polymer detection system. The external controls are reviewed for appropriate reactivity and found to be adequate. Results on the target cell population are indicated above. These tests have not been validated on decalcified tissue. This test was developed and its performance characteristics determined by [employer] [facility] [facility] [employer]. It has not been cleared or approved by the U.S. Food and Drug Administration. The FDA has determined that such clearance or approval is not necessary. This test is used for clinical purposes. It should not be regarded as investigational or for research. . 01 Pathologist provided ICD-10: C50.911 . 01 CPT . 217586, A00152, K43614, 832524, 842325, 327605 Specimen Comment: A courtesy copy of this report has been sent to [phone] Performed at: 01 [facility] [address] [place] [id number] MD Tacho Bartlett MD Phone: [phone]
--- NOTE | 2023-11-19 12:34 | DI.US.S_ITS ---
MULTIPLE ULTRASOUND GUIDED BIOPSIES RIGHT BREAST USING VACUUM DEVICE WITH MARKING DEVICES INSERTED: 11/19/2023 CLINICAL: Right breast masses 9:00 3cmfn and 1:00 3cmfn. PATIENT CONSENT: Risks (minor bleeding, infection, vasovagal reaction and repeat procedure), benefits and alternatives were explained to the patient and written informed consent was obtained. Correlation is made to exams dated: 11/19/2023 mammogram, 10/30/2023 ultrasound, 10/30/2023 mammogram, 10/10/2023 mammogram, 12/05/2018 ultrasound, and 12/05/2018 mammogram - [facility]. An ultrasound guided biopsy using real-time ultrasound was performed for the 11.6 cm x 10 cm x 10 cm mass located in the right breast at 9 o'clock middle depth. The skin was prepped in the usual manner. A small incision was made in the breast. The abnormality was approached from the lateral aspect. A biopsy needle was placed adjacent to the abnormality under ultrasound guidance. Once the needle was documented to be in the correct location, a specimen was obtained using a vacuum assisted device. Four clips were inserted into the biopsy cavity. The specimen was sent to the laboratory for pathological analysis. A second ultrasound guided biopsy using real-time ultrasound was performed for the 1.4 cm x 1 cm x 0.9 cm mass located in the right breast at 1 o'clock middle depth. The skin was prepped in the usual manner. A biopsy needle was placed adjacent to the abnormality under ultrasound guidance. Once the needle was documented to be in the correct location, a specimen was obtained using a vacuum assisted device. Three clips were inserted into the biopsy cavity. The specimen was sent to the laboratory for pathological analysis. IMPRESSION: ULTRASOUND GUIDED BIOPSY MALIGNANT Ultrasound guided biopsy of the mass in the right breast at 9 o'clock middle depth with placement of clip was successful. Pathology indicates malignant invasive lobular carcinoma (IL). Pathology results are concordant with imaging findings. Ultrasound guided biopsy of the mass in the right breast at 1 o'clock middle depth with placement of clip was successful. Pathology indicates malignant invasive lobular carcinoma (IL). Pathology results are concordant with imaging findings. Multifocal invasive lobular carcinoma confirmed. The 11:00 mass between the two biosied lesions is also presumed malignant. Recommended extent of disease MRI, oncologic and surgical consultation. This exam was interpreted at Station ID: [id number]. Ulysses AlbertoD. pc,/:11/22/2023 11:10:48
--- NOTE | 2023-11-19 12:34 | DI.MG.S_ITS ---
UNILATERAL RIGHT DIGITAL DIAGNOSTIC MAMMOGRAM 3D/2D: 11/19/2023 CLINICAL: Post clip placement. Comparison is made to exams dated: 10/30/2023 mammogram, 10/10/2023 mammogram, 12/05/2018 mammogram, and 11/13/2018 mammogram - [facility]. The right breast is heterogeneously dense, which may obscure small masses (category c / 51-75% glandular tissue). There also is a marker clip in the appropriate position in the right breast at 9 o'clock middle depth. This marker clip placement is at the biopsy site. Additionally, there is a marker clip in the appropriate position in the right breast at 1 o'clock middle depth. This marker clip placement is at the biopsy site. IMPRESSION: POST PROCEDURE MAMMOGRAM FOR MARKER PLACEMENT There was a successful marker clip placement in the right breast at 9 o'clock middle depth. There was a successful marker clip placement in the right breast at 1 o'clock middle depth. This exam was interpreted at Station ID: [id number]. Electronically Signed By: Ulysses Reese M.D. ,[facility]/:11/21/2023 11:14:26 ACR BI-RADS Category Post-procedure mammogram for marker placement
== END ==
LOC: US 12:32
PROVIDERS: PCP Internal Medicine; Referring Provider Internal Medicine; Visit Provider Internal Medicine
DX: C50.211 Malignant neoplasm of upper-inner quadrant of right female breast (principal); C50.811 Malignant neoplasm of overlapping sites of right female breast; N63.11 Unspecified lump in the right breast, upper outer quadrant; Z17.0 Estrogen receptor positive status [ER+]
CPT/HCPCS: 19083; 19084; 77065

== ENCOUNTER → 2024-06-12 15:23 | Outpatient (CLI) | payer MEDICARE, OTHER, SELFPAY ==
[2024-06-12 18:01] LABS: BUN Creatinine Ratio 16.9 (6-22); Blood Urea Nitrogen 12 mg/dL (7-17); Calcium 10.1 mg/dL (8.4-10.2); Carbon Dioxide 27 mmol/L (22-32); Chloride 101 mmol/L (98-107); Cholesterol 269 mg/dL (140-199); Estimated Glomerular Filt Rate > 60 mL/min (>60); Glucose 114 mg/dL (80-110); HDL Cholesterol 102 mg/dL (40-60); HEMOLYSIS < 15 (0-50); LDL Cholesterol Calculated 134 mg/dL (<100); Potassium 3.7 mmol/L (3.4-5.1); Sodium 136 mmol/L (137-145); Triglycerides 166 mg/dL (35-150)
[2024-06-12 18:31] LABS: TSH w/ Reflex to FT4 0.02 uIU/mL (0.47-4.68)
[2024-06-12 19:51] LABS: Free T4, Direct Thyroxine 1.53 ng/dL (0.78-2.19)
== END ==
PROVIDERS: PCP Internal Medicine; Referring Provider Internal Medicine; Visit Provider Internal Medicine
DX: I10 Essential (primary) hypertension (principal); E03.9 Hypothyroidism, unspecified; E78.2 Mixed hyperlipidemia
CPT/HCPCS: 36415; 80048; 80061; 84439; 84443

== ENCOUNTER → 2024-09-11 10:23 | Outpatient (CLI) | payer MEDICARE, OTHER, SELFPAY ==
[2024-09-11 11:57] LABS: TSH w/ Reflex to FT4 0.15 uIU/mL (0.47-4.68)
[2024-09-11 13:05] LABS: Free T4, Direct Thyroxine 1.38 ng/dL (0.78-2.19)
== END ==
PROVIDERS: PCP Internal Medicine; Referring Provider Internal Medicine; Visit Provider Internal Medicine
DX: E03.9 Hypothyroidism, unspecified (principal)
CPT/HCPCS: 36415; 84439; 84443

== ENCOUNTER → 2024-11-10 | Outpatient (CLI) | payer MEDICARE, OTHER, SELFPAY ==
--- NOTE | 2024-11-10 13:18 | DI.MG.S_ITS ---
MM screening mammo unilat LT: 11/10/2024. BI-RADS: 1 CLINICAL: 64-year old female for left screening mammogram. No Tyrer-Cuzick risk score calculation due to the patient's personal history of breast cancer. Patient reports a history of right breast carcinoma diagnosed at age 63. Status-post right mastectomy with radiation therapy. No first-degree family history of breast cancer. Patient was diagnosed within the last 5 years. The patient had a prior right breast biopsy. PRIOR EXAMS 10/10/2023, 11/13/2018. MAMMOGRAPHY TECHNIQUE: Bilateral CC and MLO tomosynthesis with synthesized views were obtained. Current study was also evaluated with a Computer Aided Detection (CAD) system. DENSITY Left: C. The breasts are heterogeneously dense, which may obscure small masses. MAMMOGRAPHY FINDINGS Left: No suspicious mass, asymmetry, microcalcification, or other abnormality seen. IMPRESSION: Left * No evidence of malignancy. RECOMMENDATIONS Left * Annual screening mammography. OVERALL ASSESSMENT CATEGORY BI-RADS-1: Negative. The [employer] recommends annual screening mammography beginning at age 40 for women with average risk of breast cancer. ELECTRONICALLY SIGNED: Jeffrey Godwin M.D. on 11/10/2024 at 03:27:49 PM Interpreting Station ID: [id number]
== END ==
PROVIDERS: PCP Internal Medicine; Referring Provider Internal Medicine; Visit Provider Internal Medicine
DX: Z12.31 Encounter for screening mammogram for malignant neoplasm of breast (principal); R92.333 Mammographic heterogeneous density, bilateral breasts
CPT/HCPCS: 77063; 77067

== ENCOUNTER → 2024-12-10 12:24 | Outpatient (CLI) | payer MEDICARE, SELFPAY ==
[2024-12-10 13:37] LABS: TSH w/ Reflex to FT4 0.02 uIU/mL (0.47-4.68)
[2024-12-10 14:04] LABS: Free T4, Direct Thyroxine 1.69 ng/dL (0.78-2.19)
== END ==
PROVIDERS: PCP Internal Medicine; Referring Provider Internal Medicine; Visit Provider Internal Medicine
DX: E03.9 Hypothyroidism, unspecified (principal)
CPT/HCPCS: 36415; 84439; 84443

== ENCOUNTER → 2024-12-11 14:02 | Outpatient (CLI) | payer MEDICARE, SELFPAY ==
--- NOTE | 2024-12-11 14:04 | DI.RAD.S_ITS ---
PROCEDURE: XR DEXA AXIAL SKELETON INDICATIONS: HX BREAST CANCER,AGE RELATED OSTEOPOROSIS COMPARISON: [facility], , XR DEXA AXIAL SKELETON, 07/17/2022, 11:35. FINDINGS: Lumbar Spine: Bone mineral density 1.078 g/cm2, T score 0.3, no significant change. Left Femoral Neck: Bone mineral density 0.680 g/cm2, T score -1.5. Left Hip: Bone mineral density 0.890 g/cm2, T score -0.4, no significant interval change. Fracture Risk Calculation (when applicable): 10-year fracture risk of a major osteoporotic fracture 9.1 percent without history of prior fracture (15 percent with history of prior fracture) and of a hip fracture 1.7 percent without history of prior fracture (2.8 percent with history of prior fracture). (T score greater or equal to -1.0 to: NORMAL) (T score from -1.1 to -2.4: OSTEOPENIA) (T score less than or equal to -2.5: OSTEOPOROSIS) IMPRESSION: Osteopenia Follow-up guidelines as follows: Osteoporosis: Consider a repeat DEXA and Vertebral Fracture Assessment (VFA) exam in 2 years or sooner if medically necessary, to reassess this patient's status. Osteopenia: Consider a repeat DEXA in 2-3 years to reassess this patient's status, or if there is a new clinical indication. Normal: Consider a repeat DEXA in 5 years or sooner, or if there is a new clinical indication. All treatment decisions require clinical judgment and consideration of individual patient factors, including patient preferences, comorbidities, previous drug use, risk factors not captured in the FRAX model (e.g., frailty, falls, vitamin D deficiency, increased bone turnover, interval significant decline in bone density ) and possible under- or over-estimation of fracture risk by FRAX. In addition, the NOF Guide recommends that FDA-approved medical therapies be considered in postmenopausal women and men age >= 50 years with a: * Hip or vertebral (clinical or morphometric) fracture * T-score of <=-2.5 at the spine or hip * Ten-year fracture probability by FRAX of >= 3% for hip fracture or >=20% for major osteoporotic fracture. Approved by: Linda Dalton M.D.,Ph.D. on 12/15/2024 at 8:35
== END ==
PROVIDERS: PCP Internal Medicine; Referring Provider Internal Medicine Hematology & Oncology; Visit Provider Internal Medicine Hematology & Oncology
DX: M81.0 Age-related osteoporosis without current pathological fracture (principal); C50.411 Malignant neoplasm of upper-outer quadrant of right female breast; Z17.0 Estrogen receptor positive status [ER+]
CPT/HCPCS: 77080

== ENCOUNTER → 2025-03-11 12:05 | Outpatient (CLI) | payer MEDICARE, SELFPAY ==
[2025-03-11 13:32] LABS: TSH w/ Reflex to FT4 0.07 uIU/mL (0.47-4.68)
[2025-03-11 13:58] LABS: Free T4, Direct Thyroxine 1.72 ng/dL (0.78-2.19)
== END ==
PROVIDERS: PCP Internal Medicine; Referring Provider Internal Medicine; Visit Provider Internal Medicine
DX: E03.9 Hypothyroidism, unspecified (principal)
CPT/HCPCS: 36415; 84439; 84443

== ENCOUNTER → 2025-06-11 07:49 | Outpatient (CLI) | payer MEDICARE, SELFPAY ==
[2025-06-11 12:48] LABS: TSH w/ Reflex to FT4 0.34 uIU/mL (0.47-4.68)
[2025-06-11 14:10] LABS: Free T4, Direct Thyroxine 1.60 ng/dL (0.78-2.19)
== END ==
PROVIDERS: PCP Internal Medicine; Referring Provider Internal Medicine; Visit Provider Internal Medicine
DX: E03.9 Hypothyroidism, unspecified (principal)
CPT/HCPCS: 36415; 84439; 84443